=== PATIENT | male | born 1955 | race Caucasian/White ===

== ENCOUNTER → 2017-06-22 | Outpatient (CLI) | payer BC | LOC: PT 10:53 | DX: Z01.818 Encounter for other preprocedural examination (principal); S83.241A Other tear of medial meniscus, current injury, right knee, initial encounter; X58.XXXA Exposure to other specified factors, initial encounter ==

== ENCOUNTER 2017-07-10 10:00 | Outpatient (RCR) | payer BC | END 2017-07-20 09:09 | disposition home or self-care (01) | LOC: PT 10:00 | DX: Z47.89 Encounter for other orthopedic aftercare (principal) ==

== ENCOUNTER 2020-10-11 10:22 | Outpatient (RCR) | payer MEDICARE | END 2020-10-25 | disposition home or self-care (01) | LOC: PT | DX: M25.552 Pain in left hip (principal); G89.29 Other chronic pain ==

== ENCOUNTER 2020-12-08 13:54 | Outpatient (RCR) | payer MEDICARE | END 2021-03-08 | disposition home or self-care (01) | LOC: PT | DX: M25.552 Pain in left hip (principal); G89.29 Other chronic pain | CPT/HCPCS: G0283-GP ==

== ENCOUNTER → 2022-06-05 | Day surgery (SDC) | payer MEDICARE, OTHER | END | disposition home or self-care (01) | LOC: MSO 07:30 | DX: Z12.11 Encounter for screening for malignant neoplasm of colon (principal); Z86.010 Personal history of colon polyps; Z87.891 Personal history of nicotine dependence; I10 Essential (primary) hypertension; N52.9 Male erectile dysfunction, unspecified; K21.9 Gastro-esophageal reflux disease without esophagitis; I71.4 Abdominal aortic aneurysm, without rupture; R53.83 Other fatigue; M79.2 Neuralgia and neuritis, unspecified; Z85.46 Personal history of malignant neoplasm of prostate; Z79.899 Other long term (current) drug therapy | CPT/HCPCS: 00812; J2704; J3010; J7120 ==